=== PATIENT | female | born 1960 | race African-American/Black ===

== ENCOUNTER 2023-04-09 07:06 | Day surgery (SDC) | payer OTHER ==
[~2023-04-09] VITALS: Ht 160 cm; Wt 47.3 kg
[2023-04-09] MEDS ORDERED: FLUMAZENIL 0.1 MG/ML 5 ML VIAL IVP ONE (07:44)
[2023-04-09] MEDS ORDERED: FentaNYL CITRATE PF 100 MCG/2 ML VIAL ONE (07:44)
[2023-04-09] MEDS ORDERED: EPINEPHrine 1:10,000 [1 MG/10 ML] SYRINGE ONE (07:44)
[2023-04-09] MEDS ORDERED: MIDAZOLAM HCL 2 MG/2 ML VIAL ONE (07:44)
[2023-04-09] MEDS ORDERED: NALOXONE HCL 0.4 MG/ML VIAL ONE (07:45)
[2023-04-09] MEDS ORDERED: SODIUM TETRADECYL SULFATE 3% 60 MG/2 ML VIAL IVP ONE (07:45)
[2023-04-09] MEDS ORDERED: ATROPINE SULFATE 0.1 MG/ML 10 ML SYRINGE IVP ONE (07:45)
[2023-04-09] MEDS ORDERED: DiphenhydrAMINE HCL 50 MG/ML VIAL ONE (07:45)
[2023-04-09] MEDS ORDERED: SODIUM CHLORIDE 0.9% 1,000 ML IV ONE (08:30)
== END 2023-04-09 08:35 | disposition home or self-care (01) ==
LOC: SURGERY 07:06
PROVIDERS: ATTEND Internal Medicine Critical Care Medicine
DX: R05.3 Chronic cough (principal); Z53.8 Procedure and treatment not carried out for other reasons; R91.1 Solitary pulmonary nodule; J98.09 Other diseases of bronchus, not elsewhere classified; J98.8 Other specified respiratory disorders
CPT/HCPCS: J0171; J0461; J1200; J2250; J2310; J3010; J3490; Q9967